=== PATIENT | female | born 1980 | race Caucasian/White ===

== ENCOUNTER 2024-09-13 11:51 | Emergency (ER) | payer OTHER | END 2024-09-13 12:36 | disposition left against medical advice (07) | LOC: ED 11:51 | DX: T14.90XA Injury, unspecified, initial encounter (principal); Z53.21 Procedure and treatment not carried out due to patient leaving prior to being seen by health care provider; X58.XXXA Exposure to other specified factors, initial encounter; Y93.89 Activity, other specified; Y92.89 Other specified places as the place of occurrence of the external cause; Y99.0 Civilian activity done for income or pay ==